=== PATIENT | female | born 1950 ===

== ENCOUNTER 2021-10-11 10:28 | Outpatient (CLI) | payer MEDICARE, OTHER ==
[2021-10-11 13:00] LABS: Estimated GFR-MDRD - POC Greater than 90
== END 2021-10-11 10:29 | disposition home or self-care (01) ==
LOC: CT 10:28
PROVIDERS: ATTEND Internal Medicine Gastroenterology
DX: R10.32 Left lower quadrant pain (principal); N28.89 Other specified disorders of kidney and ureter; K80.20 Calculus of gallbladder without cholecystitis without obstruction; K59.00 Constipation, unspecified; I70.90 Unspecified atherosclerosis
CPT/HCPCS: 74177; 82565